=== PATIENT | female | born 1970 | race Caucasian/White ===

== ENCOUNTER 2022-04-29 11:46 | Emergency (ER) | payer OTHER, SELFPAY ==
[2022-04-29] VITALS (13 sets, daily range): BP systolic 119–209; BP diastolic 55–111; PULSE 78–117; RESP 13–34; TEMP 36.4; O2SAT 100
--- NOTE | ~2022-04-29 | XR_ITS ---
EXAMINATION: XR chest 2V 04/29/2022 13:16 INDICATION: Weakness and dyspnea PROCEDURE: 2 view chest COMPARISON: No prior studies for comparison. FINDINGS: The lungs are clear. The cardiomediastinal silhouette is within normal limits. There are no pleural effusions. There is no pneumothorax suspected. IMPRESSION: 1: NO ACUTE CARDIOPULMONARY DISEASE. Reviewed, dictated and finalized at location A.
--- NOTE | ~2022-04-29 | US_ITS ---
EXAMINATION:US venous doppler LE BI INDICATION:Leg swelling TECHNIQUE: Multiple grayscale, color flow and Doppler images of the right lower extremity deep venous systems were obtained and reviewed. COMPARISON:No prior studies for comparison. FINDINGS: The common femoral, superficial femoral and greater saphenous veins of the right leg are pa tent with normal flow, compressibility and augmentation. The remainder of the examination of the righ t leg and left leg were refused by the patient. IMPRESSION: 1: No lower extremity deep venous thrombosis. Limited study. Large segment of the right leg in the e ntire left leg were not evaluated due to patient refusal. Reviewed, dictated and finalized at location A. IMPRESSION: 1: No lower extremity deep venous thrombosis. Limited study. Large segment of the right leg in the entire left leg were not evaluated due to patient refusal.
--- NOTE | 2022-04-29 12:00 | ED.GENADULT ---
HPI - General Adult General Chief complaint: Extremity Injury, Lower Stated complaint: leg swelling Time Seen by Provider: 04/29/22 11:58 History of Present Illness HPI narrative: Patient is a 51-year-old female presents to the ER with lower extremity swelling. Symptoms began 1 week ago. Associated with pain and occasional weeping. There is also redness to the lower extremity. No aggravating or alleviating factors. Patient is without chest pain or shortness of breath. Patient has had issues with swelling in the past and takes Lasix twice a day. She does not wear compression stockings as she has fibromyalgia and causes her pain. No recent long distance travel. Related Data Home Medications Medication Instructions Recorded Confirmed amlodipine 5 mg tablet 5 mg PO DAILY 04/29/22 clindamycin HCl 300 mg capsule 300 mg PO Q8H 04/29/22 duloxetine 60 mg capsule,delayed 60 mg PO BID 04/29/22 release (Cymbalta) furosemide 40 mg tablet 20 mg PO BID 04/29/22 lisinopril 40 mg tablet 40 mg PO DAILY 04/29/22 metolazone 2.5 mg tablet 2.5 mg PO DAILY 04/29/22 potassium chloride 20 mEq 20 meq PO DAILY 04/29/22 tablet,extended release pregabalin 50 mg capsule 50 mg PO HS 04/29/22 Allergies Allergy/AdvReac Type Severity Reaction Status Date / Time No Known Allergies Allergy Verified 04/29/22 12:01 Review of Systems Review of Systems: All systems reviewed & are unremarkable except as noted in HPI and below Constitutional: Constitutional: Denies chills, Reports fatigue and Denies fever(s) ENT: Denies nasal congestion and Denies sore throat Cardiovascular: Cardiovascular: Denies chest pain, Denies rapid heart rate and Denies radiating jaw, neck or arm pain Respiratory: Respiratory: Denies cough, Reports dyspnea (Reports shortness of breath due to caring for elderly family members.) and Denies wheezing Gastrointestinal: Gastrointestinal: Denies abdominal pain, Denies nausea and Denies vomiting Musculoskeletal: Musculoskeletal: Denies arthralgias and Denies joint swelling Comments: Lower extremity edema with weeping. Integumentary/Breasts: Skin/Breast: Denies pruritus, Reports erythema and Denies rash PMFSH Past Medical History Medical History (Updated 04/29/22 @ 14:28 by Feng Duarte MD) Depression Fibromyalgia Hypertension Surgical History Surgical History (Updated 04/29/22 @ 14:28 by Feng Duarte MD) H/O eye surgery H/O wrist surgery Social History Social History (Updated 04/29/22 @ 12:53 by Feng Duarte MD) Smoking status: Never smoker Exam Narrative: GENERAL: Well-appearing, morbidly obese, and in no acute distress. HEAD: Normocephalic, atraumatic. CHEST: Clear to auscultation. No respiratory distress. HEART: Regular rate and rhythm. Normal peripheral pulses. ABDOMEN: Soft, nontender, nondistended. EXTREMITIES: Normal range of motion. 3+edema. Venous stasis changes of the shins and calves bilaterally noted right worse than left with some hyperemia of the skin. No bullae or blisters. Mildly tender to palpation. SKIN: Warm, dry, no rash with exception of venous stasis changes. NEURO: Alert and oriented x3. PSYCH: Normal mood and affect. Course Course Emergency Course: Patient unable to tolerate ultrasound due to pain from fibromyalgia and swelling. Offered pain medication to help facilitate ultrasound and patient refuses. D-dimer elevated. I contacted patient's primary care physician Dr. Marcum. The decision has been made to anticoagulate the patient given her swelling and her elevated D-dimer. The patient will need to follow-up in 1 week for repeat evaluation and then a perform an ultrasound at that time. Additionally patient is going to be started on Lasix 40 mg for the next 10 days and be given potassium supplementation. Patient will hold her home furosemide. Patient has been educated about these details and verbalized understanding. Vital Signs Vital signs:
[2022-04-29 13:14] LABS: Basophils Percent Auto 0.5 % (0.2-1.2); Eosinophils Absolute Auto 0.1 K/mm3 (0-0.3); Hematocrit 37.4 % (37.0-47.0); Hemoglobin 11.8 g/dL (12.0-15.0); Immature Granulocyte Absolute 0.03 K/mm3 (0.00-0.031); Immature Granulocyte Percent A 0.5 % (0-0.5); Lymphocytes Absolute Auto 1.73 K/mm3 (0.9-3.2); Lymphocytes Percent Auto 26.1 % (18.3-44.2); Mean Corpuscular HGB Conc 31.6 g/dl (32-36); Mean Corpuscular Hemoglobin 31.3 pg (26-34); Mean Corpuscular Volume 99.2 fl (80-100); Mean Platelet Volume 11.4 fl (7.4-10.4); Monocytes Absolute Auto 0.6 K/mm3 (0.1-0.6); Monocytes Percent Auto 8.5 % (2.6-8.5); Neutrophils Absolute Auto 4.1 K/mm3 (1.3-6.7); Neutrophils Percent Auto 62.4 % (45.5-73.1); Platelet Count Result 240 k/mm3 (150-375); Red Blood Count 3.77 M/mm3 (4.2-5.4); Red Cell Distribution Width 15.8 % (11.5-14.5); White Blood Count 6.6 K/mm3 (4.5-10.0)
[2022-04-29 13:31] LABS: Partial Thromboplastin Time 28.7 SECONDS (22.3-36.8); Prothrombin Time 12.5 Seconds (11.1-14.7)
[2022-04-29 13:38] LABS: D Dimer 0.76 ug/mL (<0.48)
[2022-04-29 13:44] LABS: Anion Gap 7 mmol/L (8-16); Blood Urea Nitrogen 13 mg/dL (7-17); Calcium 8.3 mg/dL (8.4-10.2); Carbon Dioxide 27 mmol/L (22-30); Chloride 106 mmol/L (98-107); Estimated CRCL calculation 95 ml/min; Estimated Glomerular Filt Rate 59; Glucose 120 mg/dL (65-110); Potassium 3.7 mmol/L (3.4-5.0); Sodium 140 mmol/L (137-145)
[2022-04-29 13:47] LABS: NT Pro B Type Natriuretic Pept 138 pg/mL (5-100)
== END 2022-04-29 14:40 | disposition home or self-care (01) ==
PROVIDERS: Emergency Provider Emergency Medicine
DX: R60.0 Localized edema (principal); I10 Essential (primary) hypertension; M79.7 Fibromyalgia; F32.A Depression, unspecified
CPT/HCPCS: 36415; 71046; 80048; 83880; 85025; 85380; 85610; 85730; 93970; 99284